=== PATIENT | female | born 1965 | race Caucasian/White ===

== ENCOUNTER 2017-06-24 14:38 | Emergency (ER) | payer OTHER ==
[2017-06-24 17:25] LABS: Urine Blood TRACE (NEG); Urine Glucose NEGATIVE (NEG); Urine Protein NEGATIVE (NEG)
--- NOTE | 2017-06-24 17:26 | RAD REPORT ---
EXAM DESCRIPTION: US - Abdomen Exam Limited - 06/24/2017 5:17 pm CLINICAL HISTORY: Right upper quadrant pain COMPARISON: August 2015 CT FINDINGS: No gallstones, sludge or other abnormalities within the gallbladder lumen. There is no wal l thickening or pericholecystic fluid. No common duct stone or biliary tree dilatation identified. IMPRESSION: Normal gallbladder and biliary tree ultrasound.
[2017-06-24 17:46] LABS: Absolute Lymphocytes (CBC) 2.5 K/uL (0.7-4.9); Absolute Monocytes 0.4 K/uL (0.1-1.3); Absolute Neutrophil 3.6 K/uL (1.8-8.0); Basophils % 1.1 % (0-1.3); Eosinophils % 1.8 % (0-4.4); Hematocrit 43.1 % (36.0-45.0); Lymphocytes % 37.2 % (15.3-44.8); MCH 33.8 pg (27.0-35.0); MCV 100.6 fL (80-100); MPV 8.7 fL (7.6-11.3); Monocytes % 6.3 % (3.3-12.3); RBC Red Blood Cell Count 4.28 M/uL (3.86-4.86)
[2017-06-24 17:53] LABS: Potassium 3.7 mEq/L (3.6-5.0)
[2017-06-24 17:54] LABS: Glomerular Filtration Rate > 60 mL/min (>60)
[2017-06-24 17:59] LABS: Albumin 4.7 g/dL (3.2-5.5); Bilirubin Direct 0.1 mg/dL (0-0.2); Bilirubin Total 0.6 mg/dL (0.3-1.2); Protein, Total 7.4 g/dL (6.0-8.3)
[2017-06-24 18:21] LABS: Urine Bacteria <20 /HPF (<20); Urine Culture Reflex Order NOT NEEDED; Urine Mucus NS /HPF (NONE SEEN)
[2017-06-24] MEDS ORDERED: KETOROLAC 30 MG/ML INJ ONE (18:32)
--- NOTE | 2017-06-24 19:03 | RAD REPORT ---
EXAM DESCRIPTION: CT - Abdomen Pelvis W/Wo Contrast - 06/24/2017 6:46 pm CLINICAL HISTORY: Abdominal pain. COMPARISON: 08/25/2015 TECHNIQUE: Axial non-contrast CT imaging was performed. Following this, biphasic contrast enhanced i maging through the abdomen and pelvis was performed with coronal and sagittal reformatted images. All CT scans are performed using dose optimization technique as appropriate and may include automated exposure control or mA/KV adjustment according to patient size. FINDINGS: The lower lung calderon are clear. The liver, spleen, pancreas and adrenal glands are normal. The non-contrast portion of the study does not demonstrate any urinary tract stones. No hydronephrosi s is seen in either kidney. The post-contrast portion of the examination fails to show a concerning renal mass or perinephric abn ormality. Symmetric contrast excretion is noted by both kidneys. No bowel obstruction, free fluid or abscess. The appendix appears absent. No fracture or aggressive marrow process is seen. A tiny air bubble is present in the urinary bladder . IMPRESSION: Tiny air bubble urinary bladder could indicate cystitis/ UTI. Elsewhere, no acute or aggressive finding is seen.
[2017-06-24] MEDS ORDERED: NA CHLORIDE 0.9% 1,000 ML ONE (19:05)
--- NOTE | 2017-06-24 19:25 | ER ---
Nurse's Notes [facility] Name: Altagracia Burnett Age: 51 yrs Sex: Female : 1965 Arrival Date: 06/24/2017 Time: 14:39 Bed 20 Private MD: Diagnosis: Abdominal tenderness;Hematuria, unspecified Presentation: 06/24 15:00 Presenting complaint: Patient states: "I started with some side pain (right) under my lk1 rib cage a few days ago. The pain is now on my whole right side and around to the back. I went to our work clinic and they sent me here.". Transition of care: patient was not received from another setting of care. Onset of symptoms was June 20, 2017. Care prior to arrival: None. 15:00 Method Of Arrival: Ambulatory lk1 15:00 Acuity: LEVI 3 lk1 Triage Assessment: 15:01 General: Appears in no apparent distress. Behavior is calm, cooperative, appropriate lk1 for age. Pain: Complains of pain in right upper quadrant and right lower quadrant Pain radiates to right flank Pain currently is 7 out of 10 on a pain scale. Cardiovascular: Capillary refill is brisk Patient's skin is warm and dry. Respiratory: Airway is patent Respiratory effort is even, unlabored, Respiratory pattern is regular, symmetrical. GI: Abdomen is non-distended, Patient currently denies cramping, diarrhea, nausea, vomiting. : Denies burning with urination, pain urinary frequency, urgency, vaginal bleeding. 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 - Social history:: Smoking status: Patient uses tobacco products, smokes one pack cigarettes per day. Screenin:45 Abuse screen: Denies threats or abuse. Nutritional screening: No deficits noted. em Tuberculosis screening: No symptoms or risk factors identified. Fall Risk None identified. Assessment: 17:00 General: Appears in no apparent distress. comfortable, Behavior is calm, cooperative, em Denies fever. Pain: Complains of pain in right lower quadrant and right upper quadrant Pain radiates to back Pain currently is 8 out of 10 on a pain scale. Quality of pain is described as throbbing, Pain began 2-3 days ago. Neuro: Level of Consciousness is awake, alert, obeys commands, Oriented to person, place, time, situation. Cardiovascular: Capillary refill < 3 seconds Patient's skin is warm and dry. Respiratory: Airway is patent Respiratory effort is even, unlabored, Respiratory pattern is regular, symmetrical. GI: Abdomen is flat, Bowel sounds present X 4 quads. Abd is soft X 4 quads Abdomen is tender to palpation in right upper quadrant and right lower quadrant. : No signs and/or symptoms were reported regarding the genitourinary system. EENT: No signs and/or symptoms were reported regarding the EENT system. Derm: Skin is intact. Musculoskeletal: Range of motion: intact in all extremities. 17:15 General: The previous assessment is accurate, call light remains within reach. . ss 18:10 Reassessment: Patient appears in no apparent distress at this time. Patient and/or em family updated on plan of care and expected duration. Pain level reassessed. Patient is alert, oriented x 3, equal unlabored respirations, skin warm/dry/pink. 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 51YO WF P/W ABD PAIN, RUQ x1 DAY. U/S bp NEGATIVE, CT RESULTS PENDING. 19:31 Reassessment: PT D/C HOME AMBULATORY, DX WITH NONSPECIFIC ABD PAIN AND HEMATURIA. bp Vital Signs: 15:04 BP 121 / 85; Pulse 85; Resp 14; Temp 97.6; Pulse Ox 98% on R/A; Weight 68.04 kg (R); lk1 Height 5 ft. 6 in. (167.64 cm) (R); Pain 7/10; 17:17 BP 97 / 56; Pulse 69; Resp 14; Pulse Ox 97% on R/A; mh5 19:00 BP 130 / 88; Pulse 51; Resp 16; Pulse Ox 100% ; bp 15:04 Body Mass Index 24.21 (68.04 kg, 167.64 cm) lk1 ED Course: 14:39 Patient arrived in ED. as 15:01 Triage completed. lk1 15:05 Arm band placed on right wrist. lk1 16:41 Florentino Yanes MD is Attending Physician. tw4 17:00 Patient has correct armband on for positive identification. Bed in low position. Call em light in reach. Side rails up X2. 17:12 Torsten Starks LVN is Primary Nurse. em 17:16 Ultrasound completed. Patient tolerated well. lc3 17:16 Urine collected: clean catch specimen, clear. 5 17:17 Abdomen Exam Limited In Process Unspecified. EDMS 17:30 No provider procedures requiring assistance completed. Initial lab(s) drawn, by me, em sent to lab. Inserted saline lock: 20 gauge in right antecubital area, using aseptic technique. Blood collected. 18:[address] via wheelchair. sj 18:46 CT completed. Patient tolerated procedure well. Patient moved back from CT. sj 18:46 CT Abd/Pelvis- W/WO Contrast In Process Unspecified. EDMS 19:31 IV discontinued, intact, bleeding controlled, No redness/swelling at site. Pressure bp dressing applied. Administered Medications: 17:50 Drug: NS 0.9% 1000 ml Route: IV; Rate: 1 bolus; Site: right antecubital; em 19:33 Follow up: IV Status: Completed infusion bp 18:20 Drug: TORadol 30 mg Route: IVP; Site: right antecubital; iw 19:16 Follow up: Response: No adverse reaction em Outcome: 19:24 Discharge ordered by . tw4 19:32 Discharged to home ambulatory. bp 19:32 Condition: stable 19:32 Discharge instructions given to patient, Instructed on discharge instructions, follow up and referral plans. medication usage, Demonstrated understanding of instructions, follow-up care, medications, Prescriptions given X 2. 19:37 Patient left the ED. bp Signatures: Dispatcher [employer] EDChelsie Lock Torsten Starks, TAMARA SANCHEZN em Chayito Moon Irene, RN RN iw Smirch, Shelby, RN RN ss Cunningham, Laulita lc3 Kluge, Leah, RN RN shankar1 Caity Moon [facility] Lucas Cheung RN RN bp Florentino Yanes MD MD tw4
--- NOTE | 2017-06-24 19:25 | EDPHYS ---
Physician Documentation [facility] Name: Altagracia Burnett Age: 51 yrs Sex: Female : 1965 Arrival Date: 06/24/2017 Time: 14:39 Bed 20 Private MD: ED Physician Florentino Yanes HPI: 06/24 16:59 This 51 yrs old Female presents to ER via Ambulatory with complaints of tw4 Abdominal Pain. 16:59 The patient presents with abdominal pain in the right upper quadrant, right lower tw4 quadrant. Onset: The symptoms/episode began/occurred today. The symptoms do not radiate. Associated signs and symptoms: none. The symptoms are described as dull. Modifying factors: The symptoms are alleviated by nothing, the symptoms are aggravated by alcohol. Severity of pain: At its worst the pain was moderate in the emergency department the pain is unchanged. The patient has not experienced similar symptoms in the past. 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 - Social history:: Smoking status: Patient uses tobacco products, smokes one pack cigarettes per day. ROS: 16:59 Constitutional: Negative for fever, chills, and weight loss, Eyes: Negative for injury, tw4 pain, redness, and discharge, Cardiovascular: Negative for chest pain, palpitations, and edema, Respiratory: Negative for shortness of breath, cough, wheezing, and pleuritic chest pain, Back: Negative for injury and pain, : Negative for injury, bleeding, discharge, and swelling, MS/Extremity: Negative for injury and deformity, Skin: Negative for injury, rash, and discoloration, Neuro: Negative for headache, weakness, numbness, tingling, and seizure. 16:59 Abdomen/GI: Positive for abdominal pain, nausea, Negative for vomiting, diarrhea, abdominal distension, anorexia, black/tarry stool, rectal pain, rectal bleeding. Exam: 16:59 Constitutional: This is a well developed, well nourished patient who is awake, alert, tw4 and in no acute distress. Head/Face: Normocephalic, atraumatic. Chest/axilla: Normal chest wall appearance and motion. Nontender with no deformity. No lesions are appreciated. Cardiovascular: Regular rate and rhythm with a normal S1 and S2. No gallops, murmurs, or rubs. Normal PMI, no JVD. No pulse deficits. Respiratory: Lungs have equal breath sounds bilaterally, clear to auscultation and percussion. No rales, rhonchi or wheezes noted. No increased work of breathing, no retractions or nasal flaring. Back: No spinal tenderness. No costovertebral tenderness. Full range of motion. 16:59 MS/ Extremity: Pulses equal, no cyanosis. Neurovascular intact. Full, normal range of motion. Neuro: Awake and alert, GCS 15, oriented to person, place, time, and situation. Cranial nerves II-XII grossly intact. Motor strength 5/5 in all extremities. Sensory grossly intact. Cerebellar exam normal. Normal gait. 16:59 Abdomen/GI: Inspection: abdomen appears normal, Bowel sounds: normal, Palpation: moderate abdominal tenderness, in the right upper quadrant and right lower quadrant. Vital Signs: 15:04 BP 121 / 85; Pulse 85; Resp 14; Temp 97.6; Pulse Ox 98% on R/A; Weight 68.04 kg (R); lk1 Height 5 ft. 6 in. (167.64 cm) (R); Pain 7/10; 17:17 BP 97 / 56; Pulse 69; Resp 14; Pulse Ox 97% on R/A; mh5 19:00 BP 130 / 88; Pulse 51; Resp 16; Pulse Ox 100% ; bp 15:04 Body Mass Index 24.21 (68.04 kg, 167.64 cm) lk1 MDM: 16:45 Patient medically screened. tw4 16:59 Differential diagnosis: cholecystitis, Cholelithiasis, diverticulitis, Peritonitis, tw4 Pyelonephritis, Ureterolithiasis. Data reviewed: vital signs, nurses notes. 06/24 16:08 Order name: Amylase, Serum tw4 06/24 16:08 Order name: Basic Metabolic Panel tw4 06/24 16:08 Order name: CBC with Diff tw4 06/24 16:08 Order name: Creatinine for Radiology; Complete Time: 18:10 tw4 06/24 16:08 Order name: Hepatic Function; Complete Time: 18:10 tw4 06/24 16:08 Order name: Lipase; Complete Time: 18:10 tw4 06/24 16:08 Order name: Urine Microscopic Only; Complete Time: 18:57 tw4 06/24 16:09 Order name: Amylase Level; Complete Time: 18:10 EDMS 06/24 16:09 Order name: Basic Metabolic Panel; Complete Time: 18:10 EDMS 06/24 16:09 Order name: CBC with Automated Diff; Complete Time: 18:10 EDMS 06/24 16:59 Order name: Abdomen Exam Limited; Complete Time: 18:10 EDMS 06/24 17:18 Order name: Urine Dipstick--Ancillary (enter results); Complete Time: 18:10 bd 06/24 17:18 Order name: Urine --Ancillary (enter results); Complete Time: 18:10 bd 06/24 16:08 Order name: IV Saline Lock; Complete Time: 17:41 tw4 06/24 16:08 Order name: Labs collected and sent; Complete Time: 17:41 tw4 06/24 16:08 Order name: Urine Dipstick-Ancillary (obtain specimen); Complete Time: 17:41 tw4 06/24 18:11 Order name: CT Abd/Pelvis- W/WO Contrast; Complete Time: 19:23 tw4 Administered Medications: 17:50 Drug: NS 0.9% 1000 ml Route: IV; Rate: 1 bolus; Site: right antecubital; em 19:33 Follow up: IV Status: Completed infusion bp 18:20 Drug: TORadol 30 mg Route: IVP; Site: right antecubital; iw 19:16 Follow up: Response: No adverse reaction em Disposition: 06/24/17 19:24 Discharged to Home. Impression: Abdominal tenderness, Hematuria, unspecified. - Condition is Stable. - Discharge Instructions: Hematuria, Adult, Abdominal Pain, Adult, [id number]. - Prescriptions for Ibuprofen 800 mg Oral Tablet - take 1 tablet by ORAL route every 12 hours As needed take with food; 20 tablet. Macrobid 100 mg Oral Capsule - take 1 capsule by ORAL route every 12 hours for 7 days; 14 capsule. - Medication Reconciliation Form, Thank You Letter, Antibiotic Education, Prescription Opioid Use form. - Follow up: Private Physician; When: As needed; Reason: Recheck today's complaints, Continuance of care, Re-evaluation by your physician. - Problem is new. - Symptoms have improved. Signatures: Dispatcher [employer] Torsten Godoy, ADVISOR CONSULTANT ADVISOR CONSULTANT Hilda Jensen, RN RN Lucrecia Martinez RN RN lk1 Lucas Cheung, RN RN bp Florentino Yanes MD MD tw4 Corrections: (The following items were deleted from the chart) 16:59 16:56 Abdomen Complete+US.RAD.BRZ ordered. JESSICA LOPEZ
[2017-06-24 19:40] VITALS: TEMP 97.6
[2017-06-24 19:42] VITALS: BP 130/88; O2SAT 100
== END 2017-06-24 19:37 | disposition home or self-care (01) ==
LOC: ER 14:38
DX: R31.9 Hematuria, unspecified (principal); F17.210 Nicotine dependence, cigarettes, uncomplicated
CPT/HCPCS: 36415; 74178; 76705; 80048; 80076; 81003; 81015; 81025; 82150; 83690; 85025; 96361; 96374; 99284; J7030; Q9967

== ENCOUNTER 2019-04-13 07:32 | Day surgery (SDC) | payer OTHER ==
--- OUTSIDE RECORDS SUMMARY | 2019-04-13 07:36 | XMS REPORT ---
:1965 Author Organization [employer] Care Team Providers Name Role Phone Eddie Victoria Provider Role Unavailable Allergies, Adverse Reactions, Alerts Substance Reaction Event Type N.K.D.A. 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
--- OUTSIDE RECORDS SUMMARY | 2019-04-13 07:36 | XMS REPORT ---
:1965 Author Organization [employer] Care Team Providers Name Role Eddie Salgado Provider Role Unavailable Allergies, Adverse Reactions, Alerts Substance Reaction Event Type N.K.D.A. 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
[2019-04-13] MEDS ORDERED: Ringers Lactate 1,000 ML IV ONE (08:05)
[2019-04-13] MEDS ORDERED: propofoL 200 MG/20 ML VIAL IV ONE (08:17)
[2019-04-13] MEDS ORDERED: LIDOCAINE 1% MPF 5 ML VIAL ONE (08:17)
[2019-04-13] MEDS ORDERED: GLYCOPYRROLATE 0.2 MG/ML SYR ONE (08:17)
--- NOTE | 2019-04-13 09:15 | ENDO RPT ---
[address], [address] COLONOSCOPY PROCEDURE REPORT EXAM DATE: 04/13/2019 PATIENT NAME: Altagrcaia Burnett MR #: [id number] BIRTHDATE: 1965 ATTENDING: Kris Llanes DR STATUS: outpatient PMO CONSULTANT: Margot Xiao RN and Dve Rosas [facility] INDICATIONS: The patient is a 53 yr old Female here for a colonoscopy due to colon cancer screening PROCEDURE PERFORMED: Screening Colonoscopy and Colonoscopy MEDICATIONS: Per Anesthesia. ESTIMATED BLOOD LOSS: None CONSENT: The patient understands the risks and benefits of the procedure and understands that these risks include, but are not limited to: sedation, allergic reaction, infection, perforation and/or bleeding. Alternative means of evaluation and treatment include, among others: physical exam, x-rays, and/or surgical intervention. The patient elects to proceed with this endoscopic procedure. DESCRIPTION OF PROCEDURE: During intra-op preparation period all mechanical medical equipment was checked for proper function. Hand hygiene and appropriate measures for infection prevention was taken. Procedure, possible complications, alternatives including, but not limited to possibility of bleeding, perforation, tear, infection, sepsis, need for surgery, need for blood transfusion, were explained to the patient. After the risks, benefits and alternatives of the procedure were thoroughly explained, Informed consent was verified, confirmed and timeout was successfully executed by the treatment team. The patient was placed in the left lateral position. A digital rectal exam was performed and revealed internal hemorrhoids. After appropriate level of anesthesia, the scope was passed. The EC-[id number] ([id number]) endoscope was introduced through the anus and advanced to the cecum, which was identified by both the appendix and ileocecal valve. The quality of the prep was fair. The instrument was then slowly withdrawn as the colon was fully examined. Scope withdrawal time was 8 minutes. COLON FINDINGS: Mild diverticulosis was noted in the right colon. No bleeding was noted from the diverticulosis. Small internal hemorrhoids were found. Mild diverticulosis was noted in the sigmoid colon. No bleeding was noted from the diverticulosis. Retroflexed views revealed no abnormalities. The scope was then completely withdrawn from the patient and the procedure terminated. ADVERSE EVENTS: There were no complications. IMPRESSIONS: 1. Mild diverticulosis was noted in the right colon 2. Small internal hemorrhoids RECOMMENDATIONS: 1. Monitor for any evidence of rectal bleeding. 2. yearly hemoccult starting in 4 years 3. hemorrhoidal hygiene RECALL: Return in 10 year(s) for Colonoscopy. Return sooner for any new issues, stool blood test beginning in [address] eSigned: Kris Llanes DR 04/13/2019 9:15 AM cc: CPT CODES: ICD9 CODES: PATIENT NAME: Altagracia Burnett MR#: [id number]
[2019-04-13 09:27] VITALS: O2SAT 100
[2019-04-13 09:38] VITALS: TEMP 97.6
[2019-04-13 09:39] VITALS: BP 109/83
== END 2019-04-13 09:50 | disposition home or self-care (01) ==
LOC: OR 07:32
PROVIDERS: ATTEND Surgery
PROC: 0DJD8ZZ Inspection of Lower Intestinal Tract, Via Natural or Artificial Opening Endoscopic (ICD-10-PCS; principal; 2019-04-13 08:30)
DX: Z12.11 Encounter for screening for malignant neoplasm of colon (principal); K57.30 Diverticulosis of large intestine without perforation or abscess without bleeding; K64.8 Other hemorrhoids; F17.200 Nicotine dependence, unspecified, uncomplicated; Z80.0 Family history of malignant neoplasm of digestive organs; Z80.3 Family history of malignant neoplasm of breast; Z80.1 Family history of malignant neoplasm of trachea, bronchus and lung; Z80.41 Family history of malignant neoplasm of ovary; Z80.49 Family history of malignant neoplasm of other genital organs; Z80.8 Family history of malignant neoplasm of other organs or systems; Z82.49 Family history of ischemic heart disease and other diseases of the circulatory system
CPT/HCPCS: 45378; J2704; J7120